=== PATIENT | female | born 1985 | race Caucasian/White ===

== ENCOUNTER 2018-03-13 14:42 | Observation (INO) ==
--- OUTSIDE RECORDS SUMMARY | 2018-03-13 14:46 | External Medical Summary | Continuity of Care Document ---
:1985 Author Organization [facility] [employer] [facility] Address [address] [place], [place] [id number] Phone Care Team Providers Name Role Phone [facility] Allergies, Adverse Reactions, Alerts Substance Reaction Severity Status No Known Drug Allergies Unknown Active Medications Medication Instructions Dosage Effective Dates Status Comments (start - stop) VITAMINS - Active (unknown strength) SINGULAIR (unknown take 1 tablet by oral - Active strength) route every day in the evening hydroxyzine HCl 25 mg take 1 tablet by oral - Active tablet route at PRN for anxiety ProAir HFA 90 inhale 2 puff by - Active mcg/actuation aerosol inhalation route inhaler every 4 - 6 hours as needed sertraline 25 mg take 1 tablet by oral 25 MG - Active tablet route every day Problems Condition Effective Dates (start - stop) Clinical Status Previous Low Transverse - Decreased movements, second - trimester, unsp 23 weeks gestation of - Personal history of endo, nutritional - and metabolic disease Pruritus, unspecified - Previous Low Transverse - Encounter for suprvsn of normal - , first trimester 12 weeks gestation of - Pruritus, unspecified - Previous Low Transverse - 16 weeks gestation of - Personal history of endo, nutritional - and metabolic disease Pruritus, unspecified - Previous Low Transverse - Pap Smear Screening, Cervix - Less than 8 weeks gestation of - Personal history of endo, nutritional - and metabolic disease Irregular Menses Encounter for initial prescription of contraceptive pills Encounter for test, result - negative Previous Low Transverse - Encounter for suprvsn of normal - , second trimester 22 weeks gestation of - Personal history of endo, nutritional - and metabolic disease Previous Low Transverse - Encounter for suprvsn of normal - , second trimester 24 weeks gestation of - Previous Low Transverse - 12 weeks gestation of - Personal history of endo, nutritional - and metabolic disease Previous Low Transverse - Encounter for suprvsn of normal - , second trimester 19 weeks gestation of - Previous Low Transverse - Encounter for suprvsn of normal - , second trimester 19 weeks gestation of - Active Herpes Simplex Virus Active Chronic Anemia Active Asthma Active Procedures Procedure Date non-stress test OB Visit No Charge Results Test Name Date and Time Measure Units Reference Range Abnormal Flag Comments Unknown Advance Directives Directive Yes / No Effective Date File Name Unknown Encounters Encounter Practice Location Reason(s) Diagnoses Date Provider Care Team Description For Visit Members [facility] Previous Low Luli In Womens Transverse 6-201 [place] [place], C-SectionEncounte 8 700 PO Box r for suprvsn of Medical 1522, normal , [facility] Brian Miles, [id number] weeks 120, , gestation of [facility] [place], tel:[phone] , [place]. tel: [phone] [facility] Previous Low Sobbing In Womens Transverse 0-201 [facility] [place], C-SectionDecrease 8 700 PO Box d Medical 1522, movements, second [facility], trimester, unsp23 ARTHUR Vergara, weeks gestation [id number], of 120, [place] pregnancyPersonal [place], tel:+ history of endo, [place], nutritional and [id number], metabolic disease [place]. tel: [phone] [facility] Previous Low David-2 Luli In Womens Transverse 4-201 [facility] [place], C-SectionEncounte 8 700 PO [facility] 1522, normal , [facility], [facility] Brian Miles, weeks 120, [id number], gestation of [place], pregnancyPersonal [place], tel:+ history of endo, nutritional and , [place]. metabolic disease tel: [phone] [facility] Previous Low David-0 Luli In Womens Transverse 2-201 [facility] [place], C-SectionEncounte 8 700 PO Box r [facility] 1522, normal , [facility], [facility] Brian Miles, [id number] weeks 120, [id number], gestation of [place], [place], tel:[phone] , [place]. tel: [phone] [facility] Previous Low David-0 Luli In Womens Ultrasound Transverse 2-201 [facility] [place], C-SectionEncounte 8 700 PO Box r for suprvsn of Medical 1522, normal , [facility], [facility] Brian Miles, [id number] weeks 120, [id number], gestation of [place], [place], tel:[phone] , [place]. tel: [phone] [facility] Pruritus, Riley-1 Luli In Womens unspecifiedPrevio 1-201 [facility] [place], Low Transverse 8 700 PO Box [id number] weeks Medical 1522, gestation of [facility], pregnancyPersonal Brian Miles, history of endo, 120, , nutritional and [place], metabolic disease [place], tel:[phone] , [place]. tel: [phone] [facility] Pruritus, May-1 Luli In Womens unspecifiedPrevio 4-201 [facility] [place], us Low Transverse 8 700 PO Box C-SectionEncounte Medical 1522, r for suprvsn of [facility], normal , Brian Miles, first [id number] 120, [id number], weeks gestation [place], of [place], tel:+ [phone] , [place]. tel: [phone] [facility] Previous Low November-1 Luli In Womens Ultrasound Transverse 4-201 [facility] [place], [id number] weeks 8 700 PO Box gestation of Medical 1522, pregnancyPersonal [facility], history of endo, Brian Miles, nutritional and 120, , metabolic disease [place], [place], tel:[phone] , [place]. tel: [phone] [facility] Apr-2 Luli In Womens 7-201 [facility] [place], 8 700 PO Box Medical 1522, [facility], Brian Miles, 120, , [place], tel:[phone] , [place]. tel: [phone] [facility] Pruritus, Apr-0 Luli In Womens unspecifiedPrevio 9-201 [facility] [place], us Low Transverse 8 700 PO Box C-SectionPap Medical 1522, Smear Screening, [facility], CervixLess than 8 Brian Miles, weeks gestation 120, , of [place], pregnancyPersonal [place], tel:+ history of endo, [phone] [id number] nutritional and , [place]. metabolic disease tel: [phone] [facility] Irregular Feb-0 [place] In Womens MensesEncounter 9-201 [place] [place], for initial 6 700 PO Box prescription of Medical 1522, contraceptive [facility], pillsEncounter Brian Miles, for 120, , test, result [facility] negative [place], tel:+ [phone] , [place]. tel: [phone] Alexei [place] Feb- Luli Referring In Womens 1-201 [facility]. Provider: Health [place], 5 700 [place] PO Box Medical Luli L, 1522, Center [address] [place], [place] [facility] [place], 120, [address] [id number], [place], [place], [place], [place], tel:[phone] [place], , [place]. [id number]. tel: tel: [phone] [facility] Sep- Luli In Womens 9-201 [facility] [place], 5 700 [facility] 15[address], [address] [place], [place], 120, [id number], [place], [place], tel:[phone] , [place]. tel: [phone] [facility] Aug- Luli In Womens 4-201 [facility] [place], [address] [facility] Medical [address], [address] [place], [place], 120, [id number], [place], tel: [phone] , [place]. tel: [phone] Family History Family Member Diagnosis Age At Onset Father Hypertension Sister Thyroid Disorder Paternal Grandfather Hypertension Paternal Grandmother Hypertension Immunizations Vaccine Date Status Comments Tdap completed Source: New Immunization Record Payers Payer name Insurance type Covered alliance party ID Authorization(s) [employer] [place] Medicaid MC [id number] [employer] [place] Medicaid MC [id number] Social History Type Description Quantity Date Captured Alcohol Use Details No Caffeine Use Details Unknown Tobacco Use Status Unknown Smoking Status Never smoker Vital Signs Date / Height Weight BMI Pulse Blood Temperature Respiratory Body Head BMI Time: Rate Pressure Rate Surface Circumference percentile Area 277.10 42.1 138/2018 lbs 3 mm[Hg] 2:47 kg/m PM eter (2) Chief Complaint And Reason For Visit Unknown Chief Complaint And Reason For Visit Reason For Referral Reason For Referral Unknown Plan Of Care Date Type Action Status Goal Lifestyle education regarding completed diet Referral Ordered: ordered Refer to Physical Medicine and Rehabilitation for Evaluate and Treat Appointment Lupis Fajardo BOOKED Future Order: Radiology Order Nuchal Translucency ([id number]) Ordered Future Order: Radiology Order Complete OB Ultrasound > 14 Weeks Ordered ([id number]) Date Type Problem Goal Intervention Status Start Date Unknown. History Of Present Illness Encounter Date Complaint History Of Present Illness This patient has no known history of present illness Functional Status Encounter Date Functional Assessment Cognitive Assessment Unknown Medications Administered Medication Instructions Dosage Effective Dates (start - stop) Status Comments Drug Treatment Unknown Instructions Date Instruction Additional Information HIV and other routine tests risk factors identified by history anticipated course of care nutrition and weight gain counseling, special diet toxoplasmosis precautions (cats / raw meat) sexual activity exercise indications for ultrasound influenza vaccine environmental / work hazards travel tobacco (ask, advise, assess, assist and arrange) alcohol illicit / recreational drugs use of any medications (including supplements, vitamins, herbs, OTC drugs) smoking counseling domestic violence seat belt use childbirth classes / hospital facilities hospital registration genetic testing new ob handbook risks Zika virus assessment & precautions Giving encouragement to exercise Related to Body mass index 37.0 - 37.9 Lifestyle education regarding diet Related to Body mass index 37.0-37.9
--- OUTSIDE RECORDS SUMMARY | 2018-03-13 14:46 | External Medical Summary | Continuity of Care Document ---
:1985 Author Organization [facility] [employer] [facility] Address [address] [place], [place] [address] Phone Care Team Providers Name Role Phone [facility] Un[facility] Allergies, Adverse Reactions, Alerts Substance Reaction Severity Status No Known Drug Allergies Unknown Active Medications Medication Instructions Dosage Effective Dates Status Comments (start - stop) VITAMINS - Active (unknown strength) SINGULAIR take 1 tablet by - Active (unknown oral route every strength) day in the evening hydroxyzine HCl take 1 tablet by - Active 25 mg tablet oral route at HS PRN for anxiety ProAir HFA 90 inhale 2 puff by - Active mcg/actuation inhalation route aerosol inhaler every 4 - 6 hours as needed sertraline 25 mg take 1 tablet by 25 MG - Active tablet oral route every day Terazol 7 0.4 % insert 1 Not Available - No Longer vaginal cream applicatorful by Active vaginal route every day for 7 days at bedtime Terazol 7 0.4 % insert 1 Not Available - No Longer vaginal cream applicatorful by Active vaginal route every day for 7 days at bedtime Problems Condition Effective Dates (start - stop) Clinical Status Previous Low Transverse - Personal history of endo, nutritional - and metabolic disease Encounter for suprvsn of normal - , second trimester 22 weeks gestation of - Pruritus, unspecified - [...] gestation of - Previous Low Transverse - Decreased movements, second - trimester, unsp 23 weeks gestation of - Personal history of endo, nutritional - and metabolic disease Active Herpes Simplex Virus Active Chronic Anemia Active Asthma Active Procedures Procedure Date OB Visit No Charge Results Test Name Date and Time Measure Units Reference Range Abnormal Flag Comments Unknown Advance Directives Directive Yes / No Effective Date File Name Unknown Encounters Encounter Practice Location Reason(s) Diagnoses Date Provider Care Team Description For Visit Members Alexei [place] Previous Low Luli In Womens Transverse 6-201 [facility] ALANNA, C-SectionEncounte 8 700 PO Box r for suprvsn of Medical 1522, normal , [place], [facility] Brian Miles, [id number] weeks 120, [id number], gestation of [place], [place], tel:[phone] , [place]. tel: [phone] [facility] Previous Low David-3 Sobbing In Womens Transverse 0-201 [facility] [place], C-SectionDecrease 8 700 PO Box d Medical 1522, movements, second [place], trimester, unsp[address] Drive, [place], weeks gestation Suite , of 120, [place] pregnancyPersonal [place], tel:+ history of endo, [place], nutritional and [id number], metabolic disease [place]. tel: [phone] [facility] Previous Low David-2 Luli In Womens Transverse 4-201 [facility] [place], C-SectionPersonal 8 700 PO Box history of endo, Medical 1522, nutritional and [facility], metabolic Brian Miles, diseaseEncounter 120, , for suprvsn of [place], normal , [place], tel:+ second [phone] [id number] weeks , [place]. gestation of tel: [phone] [facility] Previous Low David-0 Luli In Womens Transverse 2-201 [facility]. [facility] ALANNA, C-SectionEncounte 8 700 PO Box r for suprvsn of Medical 1522, normal , [facility], [facility] Brian Miles, [id number] weeks 120, [id number], gestation of [place], tel:[phone] , [place]. tel: [phone] [facility] Previous Low David-0 Luli In Womens Ultrasound Transverse 2-201 [facility] [place], C-SectionEncounte 8 700 PO Box r for suprvsn of Medical 1522, normal , [facility], [facility] Brian Miles, [id number] weeks 120, [id number], gestation of [place], [place], tel:[phone] , [place]. tel: [phone] [facility] Pruritus, Riley-1 Luli In Womens unspecifiedPrevio 1-201 [facility]. [facility] [place], Low Transverse 8 700 PO Box [id number] weeks Medical 1522, gestation of [facility], pregnancyPersonal Brian Miles, history of endo, 120, , nutritional and [place], metabolic disease [place], tel:+ [phone] , [place]. tel:[phone] [facility] Pruritus, May-1 Luli In Womens unspecifiedPrevio 4-201 [facility]. [facility] [place], Low Transverse 8 700 PO Box C-SectionEncounte [facility] 1522, r for suprvsn of [facility], normal , Brian Miles, first [id number] 120, [id number], weeks gestation [place], of [place], tel:+ [phone] , [place]. tel: [phone] [facility] Previous Low May-1 Luli In Womens Ultrasound Transverse 4-201 [facility]. [facility] [place], [id number] weeks 8 700 PO Box gestation of [facility] 1522, pregnancyPersonal [facility], history of endo, Brian Miles, nutritional and 120, , metabolic disease [place], [place], tel:[phone] , [place]. tel: [phone] [facility] Apr-2 Luli In Womens 7-201 [facility]. [facility] [place], 8 700 PO Box Medical 1522, [facility], Brian Miles, 120, , [place], [place], tel:+ [phone] , [place]. tel:[phone] [facility] Pruritus, Apr-0 Luli In Womens unspecifiedPrevio 9-201 [facility]. [facility] [place], Low Transverse 8 700 PO Box C-SectionPap [facility] 1522, Smear Screening, [facility], CervixLess than 8 rBian Miles, weeks gestation 120, , of [place], pregnancyPersonal [place], tel:+ history of endo, [phone] [id number] nutritional and , [place]. metabolic disease tel:[phone] [facility] Irregular Feb-0 [place] In Womens MensesEncounter 9-201 [place] [place], for initial 6 700 PO Box prescription of Medical 1522, contraceptive [facility], pillsEncounter Brian Miles, for 120, , test, result [place], negative [place], tel:[phone] , [place]. tel: [phone] Alexei [place] Luli Referring In Womens - [facility]. Provider: Omar MONDRAGON, 5 700 [place] PO Box Medical Luli L, 1522, Center [facility] [address] [place], [facility] [place], 120, [place] [id number], [place], [facility] 120, [place], [place], tel:[phone] [place], , [place]. [id number]. tel: tel: [phone] [facility] Luli In Womens -201 [facility]. Health ALANNA, 5 700 Box Medical 1522, [place] [address] [place], [facility] [place], 120, [id number], [place], [place], tel:[phone] , [place]. tel: [phone] [facility] Luli In Womens 4-201 [facility]. Health ALANNA, 5 700 [facility] Medical 1522, [place] [address] [place], [facility] [place], 120, [id number], [place], [place], tel: [phone] , [place]. tel: [phone] Family History Family Member Diagnosis Age At Onset Father Hypertension Sister Thyroid Disorder Paternal Grandfather Hypertension Paternal Grandmother Hypertension Immunizations Vaccine Date Status Comments Tdap completed Source: New Immunization Record Payers Payer name Insurance type Covered libertarian ID Authorization(s) [employer] [place] - Medicaid MC [id number] [employer] [place] - Medicaid MC [id number] Social History Type Description Quantity Date Captured Alcohol Use Details No Caffeine Use Details Unknown Tobacco Use Status Unknown Smoking Status Never smoker Vital Signs Date / Height Weight BMI Pulse Blood Temperature Respiratory Body Head BMI Time: Rate Pressure Rate Surface Circumference percentile Area 278.50 42.3 129/83 -2018 lbs 4 mm[Hg] 10:43 kg/m AM eter (2) Chief Complaint And Reason For Visit Unknown Chief Complaint And Reason For Visit Reason For Referral Reason For Referral Unknown Plan Of Care Date Type Action Status Goal Lifestyle education regarding completed diet Referral Ordered: ordered Refer to Physical Medicine and Rehabilitation for Evaluate and Treat Appointment Lupis Fajardo BOOKED Future Order: Radiology Order Nuchal Translucency ([id number]) Ordered Future Order: Radiology Order Complete OB Ultrasound > 14 Weeks Ordered ([id number]) Date Type Problem Goal Intervention Status Start [...]
--- OUTSIDE RECORDS SUMMARY | 2018-03-13 14:46 | External Medical Summary | Continuity of Care Document ---
:1985 Author Organization [facility] Address [address] [place], [place] [id number] Phone Care Team Providers Name Role Phone [facility] Unavailable Allergies, Adverse Reactions, Alerts Substance Reaction Severity Status No Known Drug Allergies Unknown Active Medications Medication Instructions Dosage Effective Dates Status Comments (start - stop) VITAMINS - Active (unknown strength) SINGULAIR (unknown take 1 tablet by oral - Active strength) route every day in the evening hydroxyzine HCl 25 mg take 1 tablet by oral - Active tablet route at HS PRN for anxiety ProAir HFA 90 inhale 2 puff by - Active mcg/actuation aerosol inhalation route inhaler every 4 - 6 hours as needed sertraline 25 mg take 1 tablet by oral 25 MG - Active tablet route every day Problems Condition Effective Dates (start - stop) Clinical Status Pruritus, unspecified - Previous Low Transverse - [...] Anemia Active Asthma Active Procedures Procedure Date Unknown Results Test Name Date and Time Measure Units Reference Range Abnormal Flag Comments Unknown Advance Directives Directive Yes / No Effective Date File Name Unknown Encounters Encounter Practice Location Reason(s) Diagnoses Date Provider Care Team Description For Visit Members Alexei [place] Previous Low Luli In Womens Transverse 6-201 [place] [place], C-SectionEncounte 8 700 PO Box r for suprvsn of Medical 1522, normal , [facility] Brian Miles, [id number] weeks 120, , gestation of [facility] [place], tel:[phone] [facility] , . tel:[phone] [facility] Previous Low Sobbing In Womens Transverse 0-201 [place] [place], C-SectionDecrease 8 700 PO Box d Medical 1522, movements, second [facility], trimester, unsp23 [place], [place], weeks gestation Suite , of 120, [place] pregnancyPersonal [place], tel:+ history of [place], [place], nutritional and [id number], metabolic disease [place]. tel: [phone] [facility] Previous Low David-2 Luli In Womens Transverse 4-201 [facility] [place], C-SectionEncounte 8 700 PO Box r for suprvsn of [facility] 1522, normal , [facility], [facility] Brian Miles, [id number] weeks 120, [id number], gestation of [place], pregnancyPersonal [place], tel:+ history of endo, [phone] [id number] nutritional and , [place]. metabolic disease tel: [phone] [facility] David-2 Luli In Womens 0-201 [facility] [place], 8 700 PO Box Medical 1522[facility] Brian Miles, 120, [id number], [place], tel:[phone] , [place]. tel: [phone] [facility] Previous Low David-0 Luli In Womens Transverse 2-201 [facility] [place], C-SectionEncounte 8 700 PO Box r for suprvsn of [facility] 1522, normal , [facility], [facility] Brian Miles, [id number] weeks 120, , gestation of [place], tel:[phone] , [place]. tel: [phone] [facility] Previous Low David-0 Luli In Womens Ultrasound Transverse 2-201 [facility] [place], C-SectionEncounte 8 700 PO Box r for suprvsn of Medical 1522, normal , [facility], [facility] Brian Miles, [id number] weeks 120, , gestation of [place], tel:[phone] , [place]. tel: [phone] [facility] Pruritus, Riley-1 Luli In Womens unspecifiedPrevio 1-201 [facility] [place], Low Transverse 8 700 PO Box [id number] weeks Medical 1522, gestation of [facility], pregnancyPersonal Brian Miles, history of endo, 120, , nutritional and [place], metabolic disease [place], tel: [phone] , [place]. tel: [phone] [facility] Pruritus, May-1 Luli In Womens unspecifiedPrevio 4-201 [place] [place], Low Transverse 8 700 PO Box C-SectionEncounte Medical 1522, r for suprvsn of [facility], normal , Brian Miles, first [id number] 120, [id number], weeks gestation [place], of [place], tel: [phone] , [place]. tel: [phone] [facility] Previous Low May-1 Luli In Womens Ultrasound Transverse 4-201 [facility] [place], [id number] weeks 8 700 PO Box gestation of [facility] 1522, pregnancyPersonal [facility], history of endo, Brian Miles, nutritional and 120, , metabolic disease [place], tel:[phone] , [place]. tel: [phone] [facility] Apr-2 Luli In Womens 7-201 [place] [place], 8 700 PO Box Medical 1522, [facility], Brian Miles, 120, , [place], tel:[phone] , [place]. tel: [phone] [facility] Pruritus, Apr-0 Luli In Womens unspecifiedPrevio 9-201 [place]. [facility] [place], Low Transverse 8 700 PO Box C-SectionPap [facility] 1522, Smear Screening, [facility], CervixLess than 8 Brian Miles, weeks gestation 120, , of [place], pregnancyPersonal [place], tel: history of endo, [phone] [id number] nutritional and , [place]. metabolic disease tel: [phone] [facility] Irregular Feb-0 [place] In Womens MensesEncounter 9-201 [place] [place], for initial 6 700 PO Box prescription of Medical 1522, contraceptive [facility], pillsEncounter Brian Miles, for 120, , test, result [place], [place] negative [place], tel:+ [phone] , [place]. tel: [phone] Alexei [place] Luli Referring In Womens - Rose. Provider: Health ALANNA, 5 700 Rose PO Box Medical Luli L, 1522, Center [address], [facility] Medical [place], 120, [address] [id number], [place], [facility] 120, [place], [place], tel: [phone] [place], , [place]. [id number]. tel: tel: [phone] [facility] Sep- Luli In Womens 9-201 [place]. [facility] ALANNA, 5 700 [facility] Medical 1522, [address] [place], [facility] [place], 120, [id number], [place], tel: [phone] , [place]. tel: [phone] Alexei [place] Luli In Womens 4- [place]. Health ALANNA, 5 700 [facility] Medical 1522, [address], [facility] [place], 120, [id number], [place], tel: [phone] , [place]. tel: [phone] Family History Family Member Diagnosis Age At Onset Father Hypertension Sister Thyroid Disorder Paternal Grandfather Hypertension Paternal Grandmother Hypertension Immunizations Vaccine Date Status Comments Tdap completed Source: New Immunization Record Payers Payer name Insurance type Covered democrat ID Authorization(s) [employer] [place] - Medicaid MC [id number] [employer] [place] - Medicaid MC [id number] Social History Type Description Quantity Date Captured Unknown Vital Signs Date / Height Weight BMI Pulse Blood Temperature Respiratory Body Head BMI Time: Rate Pressure Rate Surface Circumference percentile Area Unknown Chief Complaint And Reason For Visit Unknown Chief Complaint And Reason For Visit Reason For Referral Reason For Referral Unknown Plan Of Care Date Type Action Status Goal Lifestyle education regarding completed diet Referral Ordered: ordered Refer to Physical Medicine and Rehabilitation for Evaluate and Treat Appointment Lupis Fajardo BOOKED Future Order: Radiology Order Nuchal Translucency ([id number]) Ordered Future Order: Radiology Order Complete OB Ultrasound > 14 Weeks Ordered ([id number]) Date Type Problem Goal Intervention Status Start [...]
--- OUTSIDE RECORDS SUMMARY | 2018-03-13 14:46 | External Medical Summary | Continuity of Care Document ---
:1985 Author Organization [facility] Address [address] [place], [place] [id number] Phone Care Team Providers Name Role Phone [facility] Unavailable Allergies, Adverse Reactions, Alerts [...] Previous Low Luli In Womens Transverse 6-201 [place] [place], C-SectionEncounte 8 700 PO Box r for suprvsn of Medical 1522, normal , [facility] Brian Miles, [id number] weeks 120, , gestation of [facility] [place], tel:[phone] [facility] , . tel:[phone] [facility] Previous Low Sobbing In Womens Transverse 0-201 [place] [place], C-SectionDecrease 8 700 PO Box d Medical 1522, movements, second [facility], trimester, unsp23 [place], [place], weeks gestation Suite , of 120, [place] pregnancyPersonal [place], tel:+ history of endo, [place], nutritional and [address], metabolic disease [place]. tel: [phone] [facility] David-3 Luli In Womens 0-201 [place] [place], 8 700 PO Box Medical 1522, [place], Brian Miles, 120, [id number], [place], tel:[phone] , [place]. tel: [phone] [facility] Previous Low Daivd-2 Luli In Womens Transverse 4-201 [place] [place], C-SectionEncounte 8 700 PO Box r for suprvsn of Medical 1522, normal , [facility], [facility] Brian Miles, [id number] weeks 120, , gestation of [place], pregnancyPersonal [place], tel:+ history of endo, nutritional and , [place]. metabolic disease tel: [phone] [facility] Previous Low David-0 Luli In Womens Transverse 2-201 [place] [place], C-SectionEncounte 8 700 PO Box r for suprvsn of Medical 1522, normal , [facility], [facility] Brian Miles, [id number] weeks 120, , gestation of [place], tel:[phone] , [place]. tel: [phone] [facility] Previous Low David-0 Luli In Womens Ultrasound Transverse 2-201 [facility] [place], C-SectionEncounte 8 700 PO Box r for suprvsn of Medical 1522, normal , [facility], [facility] Brian Miles, [id number] weeks 120, [id number], gestation of [place], [place], tel:[phone] , [place]. tel: [phone] [facility] Pruritus, Riley-1 Luli In Womens unspecifiedPrevio 1-201 [facility] [place], Low Transverse 8 700 PO Box C-[id number] weeks Medical 1522, gestation of [facility], pregnancyPersonal Brian Miles, history of endo, 120, , nutritional and [place], metabolic disease [place], tel: [phone] , [place]. tel: [phone] [facility] Pruritus, May-1 Luli In Womens unspecifiedPrevio 4-201 [facility], Low Transverse 8 700 PO Box C-SectionEncounte Medical 1522, r for suprvsn of [facility], normal , Brian Miles, first [id number] 120, [id number], weeks gestation [place], of [place], tel: [phone] [address] , [place]. tel: [phone] [facility] Previous Low May-1 Luli In Womens Ultrasound Transverse 4-201 [place] [place], [id number] weeks 8 700 PO Box gestation of [facility] 1522, pregnancyPersonal [facility], history of endo, Brian Miles, nutritional and 120, , metabolic disease [place], tel:[phone] , [place]. tel: [phone] [facility] Apr-2 Luli In Womens 7-201 [place], 8 700 PO Box Medical 1522, [facility], Brian Miles, 120, , [place], [place], tel:[phone] , [place]. tel: [phone] [facility] Pruritus, Apr-0 Luli In Womens unspecifiedPrevio 9-201 [place], Low Transverse 8 700 PO Box C-SectionPap [facility] 1522, Smear Screening, [facility], CervixLess than 8 Brian Miles, weeks gestation 120, , of [place], pregnancyPersonal [place], tel: history of endo, [phone] nutritional and , [place]. metabolic disease tel: [phone] [facility] Irregular Feb-0 [place] In Womens MensesEncounter 9-201 [place] [place], for initial 6 700 PO Box prescription of Medical 1522, contraceptive [facility], pillsEncounter Brian Miles, for 120, , test, result [place], [place] negative [place], tel:+ [phone] , [place]. tel: [phone] Alexei [place] Luli Referring In Womens - Rose. Provider: Health ALANNA, 5 700 [place] PO Box Medical Luli L, 1522, Center [address], [facility] Medical [place], 120, [address] [id number], [place], [facility] 120, [place], [place], tel: [phone] [place], , [place]. [id number]. tel: tel: [phone] [facility] Sep- Luli In Womens 9-201 [place]. [facility] ALANNA, 5 700 [facility] Medical 1522, [address], [facility] [place], 120, [id number], [place], [place], tel: [phone] , [place]. tel: [phone] Alexei [place] Luli In Womens 4- [place]. Health ALANNA, 5 700 [facility] Medical 1522, [address] [place], [facility] [place], 120, [id number], [place], tel: [phone] , [place]. tel: [phone] Family History Family Member Diagnosis Age At Onset Father Hypertension Sister Thyroid Disorder Paternal Grandfather Hypertension Paternal Grandmother Hypertension Immunizations Vaccine Date Status Comments Tdap completed Source: New Immunization Record Payers Payer name Insurance type Covered republican ID Authorization(s) [employer] [place] - Medicaid MC [id number] [employer] [place] Medicaid MC [id number] Social History Type Description Quantity Date Captured [...] BOOKED Future Order: Radiology Order Nuchal Translucency ([id number]) Ordered Future Order: Radiology Order Complete OB Ultrasound > 14 Weeks Ordered ([id number]) Date Type Problem Goal Intervention Status Start [...]
[2018-03-13] MEDS ORDERED: ACETAMINOPHEN 500 MG TABLET PO PRN (14:51)
[2018-03-13] MEDS ORDERED: LR 1,000 ML IV SCH (15:00)
[2018-03-13 15:18] VITALS: BMI 42.5
[2018-03-13] MEDS ORDERED: DiphenhydrAMINE 25 MG CAPSULE PO PRN ×2 (17:22→17:28)
--- NOTE | 2018-03-13 17:25 | Progress Note ---
DATE 03/13/2018 DESCRIPTION Ms. Fajardo was in our office today for a routine OB visit. She is a G3, P1 at 27 weeks estimated gestational age. Today her blood pressure was grossly elevated, much higher than her previous baseline at 156/98. Repeat blood pressure was the same. She also was complaining of a severe headache and some balance disturbances since the morning. We brought her to [facility] medical outpatient observation. Here, her CMP and CBC are normal. A 24- hour urine for total protein and creatinine clearance is pending. Her blood pressure much improved here at bedrest and the heart rate monitoring has been reassuring. Her headache is improved with Extra-Strength Tylenol. We will plan to watch her through the night and then finish her 24-hour urine as an outpatient. I have reviewed precautions and plan to see her on a weekly basis in the office at this point. I have discussed this plan with her and she voiced agreement and understanding. TERRI
[2018-03-13 21:21] VITALS: RESP 18; O2SAT 99
[2018-03-14 07:09] VITALS: BP 118/68; PULSE 91; TEMP 98
--- NOTE | 2018-03-14 08:44 | OB/GYN History & Physical ---
- History of Present Illness Date of Admission: 03/13/18 18:56 Reason for Admission: other History of Present Illness: Pt seen in office with compliants of 8/10 headache and had elevated BP 150's over 90s. Denies RUQ pain, Vision changes. Maritza is her second and uncompolicated to date. first complicated by cholestasis of and pt was delivered at 37 wga. This is the same FOB and pt denies HX of CHTN. Prt was seen by Dr.. Rockwell in office and sent to [facility] for Observation. RIOS is completly resolved this am. She reports good FM. : 3 - OB History #2 Delivery Type: section Complications: Cholestasis Review of Systems - Constitutional Constitutional: Absent: fever(s) - EENT Eyes: Absent: blurry vision, change in vision - Cardiovascular Cardiovascular: Absent: chest pain - Respiratory Respiratory: Absent: cough, dyspnea, wheezing - Gastrointestinal Gastrointestinal: Absent: change in bowel habits, constipation, diarrhea, nausea , vomiting - Genitourinary Genitourinary: Absent: dysuria, hematuria Additional comments: - Musculoskeletal Musculoskeletal: Absent: arthralgias, back pain - Neurological Neurological: Absent: dizziness, headache(s), numbness - Psychiatric Psychiatric: Absent: anxiety, depression - Endocrine Endocrine: Absent: cold intolerance, heat intolerance - Hematologic/Lymphatic Hematologic/Lymphatic: Absent: easy bleeding, easy bruising PFSH Patient Stated Medical History Migraine Yes Other HEENT Yes Other Cardiology Yes Asthma Yes Other GI Yes: GALLSTONES Hx Urinary Tract Infection Yes Anemia Yes Herpes Yes Depression Yes Abnormal Pap Yes Polycystic Ovarian Syndrome Yes Post Menopausal No Now Yes: EDC 06/11/18 Clinic Medical History (Last Reviewed 02/28/18 @ 17:03 by Payton Nevarez Fredo) PCOS (polycystic ovarian syndrome) (Chronic Medical) Insomnia (Resolved Medical) Anxiety (Chronic Medical) History of abnormal cervical Pap smear (Chronic Medical) Depression (Chronic Medical) Herpes simplex virus (HSV) infection (Chronic Medical) Chronic anemia (Chronic Medical) Asthma (Chronic Medical) Surgical History: * Section (Low Transverse) - 03/[address] Lennon , and Dr. Dang at [facility] in [place], [place]. * Right arm Surgery -. * Colposcopy due to abnormal pap -. * Tonsillectomy - Family History: Family History (Last Reviewed 02/28/18 @ 17:02 by KAUR Randolph) Paternal Grandmother High blood pressure Paternal Grandfather High blood pressure Sister Thyroid disease Father High blood pressure - Social History Smoking status: Never smoker second hand exposure: No Substance use type: does not use Alcohol intake: never Alcohol intake frequency: does not drink Medications Home Medications Medication Instructions Recorded Confirmed Type Albuterol Sulfate [Proair Hfa] 2 puff INH Q4H PRN 02/09/18 02/28/18 History HydrOXYzine [Atarax] 50 mg PO HS 02/09/18 03/13/18 History Montelukast [Singulair] 10 mg PO HS 02/09/18 03/13/18 History Pnv No.95/Ferrous Fum/Folic AC 1 tab PO HS 02/09/18 03/13/18 History [ Tablet] Prochlorperazine Maleate 10 mg PO QID PRN #30 tab 02/09/18 02/28/18 Rx [Compazine] Sertraline [Zoloft] 50 mg PO HS 02/09/18 03/13/18 History folic acid 1 mg tablet 1 mg PO HS tab 02/28/18 03/13/18 History Allergies Allergy/AdvReac Type Severity Reaction Status Date / Time No Known Allergies Allergy Verified 02/28/18 16:57 Exam Vital signs: Temperature 98.0 F 03/14/18 06:58 Pulse Rate 91 03/14/18 06:58 Respiratory Rate 18 03/14/18 06:58 Blood Pressure 118/68 03/14/18 06:58 Pulse Oximetry 99 03/13/18 20:55 Vital Signs Temp Pulse Resp BP Pulse Ox 03/14/18 06:58 98.0 F 91 18 118/68 03/13/18 20:55 98.2 F 95 18 129/74 99 03/13/18 16:52 127/70 Intake and Output 03/13/18 03/14/18 03/14/18 22:59 06:59 14:59 Intake Total 875 / 875 Balance 875 / 875 Intake: IV 875 / 875 Lr 1,000 ml @ 100 mls/hr IV . 875 / 875 Q10H YULIET Rx#:[id number] Other: # Voids 1 Weight 127.006 kg - Constitutional Present: no acute distress - Neck Exam Present: supple - Respiratory Exam Comments: Non Labored - Cardiovascular Exam Present: RRR. Absent: murmur - Abdominal Exam Comments: Gravid - Extremities Exam Extremities: Present: no edema - Neurological Exam Present: alert, oriented X3 - Skin Exam Present: intact [employer] Results - Labs CBC & Chem 7: 03/13/18 15:04 03/13/18 15:04 Antepartum Assessment and Plan (1) 27 weeks gestation of Current visit: Yes Status: Acute (2) Gestational hypertension Problem details: Labs wnl, symptoms resolved. Will dismiss to home to complete 24 TUP F/U in office. Current visit: Yes Status: Acute
== END 2018-03-14 09:30 | disposition home or self-care (01) ==
LOC: MC 14:42 → OBOBS 14:42 → MC 17:00
PROVIDERS: ADMIT Obstetrics & Gynecology; ATTEND Obstetrics & Gynecology